=== PATIENT | female | born 1990 | race Hispanic/Latino ===

== ENCOUNTER 2016-07-09 09:27 | Emergency (ER) | payer OTHER ==
[2016-07-09] MEDS ORDERED: KETOROLAC 30 MG/ML VIAL (J1885) As Ordered ONE (10:10)
[2016-07-09] MEDS ORDERED: ONDANSETRON 4MG/2ML VIAL (J2405) As Ordered ONE (10:10)
[2016-07-09 10:22] LABS: BASO % 0.2 % (0.0-1.0); EOS # 0.1 K/mm3 (0.0-0.50); EOS % 1.6 % (0.0-3.0); LARGE UNSTAINED CELL # 0.2 K/mm3 (0.0-0.4); LARGE UNSTAINED CELL % 2.8 % (0.0-4.0); LYMPH % 35.5 % (24.0-44.0); MEAN CORPUSCULAR HEMOGLOBIN 32.5 pg (27.0-33.0); MEAN CORPUSCULAR HGB CONC 34.8 g/dl (32.0-36.5); MEAN CORPUSCULAR VOLUME 93.3 fl (80.0-96.0); MONO # 0.3 K/mm3 (0.0-0.8); MONO % 6.2 % (0.0-5.0); NEUTROPHILS # 2.9 K/mm3 (1.8-7.7); NEUTROPHILS % 53.8 % (36.0-66.0); PLATELET COUNT, AUTOMATED 300 k/mm3 (150-450); RED CELL DISTRIBUTION WIDTH 13.2 % (11.5-14.5); WHITE BLOOD COUNT 5.3 K/mm3 (4.0-10.0)
[2016-07-09 10:37] LABS: ALBUMIN 3.8 GM/DL (3.2-5.2); ALBUMIN/GLOBULIN RATIO 1.03 (1.00-1.93); ALKALINE PHOSPHATASE 80 U/L (45-117); ALT/SGPT 26 U/L (12-78); ANION GAP 8 MEQ/L (8-16); AST/SGOT 23 U/L (15-37); BILIRUBIN,DIRECT < 0.1 MG/DL (0.0-0.2); BILIRUBIN,TOTAL 0.2 MG/DL (0.2-1.0); BLOOD UREA NITROGEN 10 MG/DL (7-18); CALCIUM LEVEL 8.5 MG/DL (8.5-10.1); CARBON DIOXIDE LEVEL 28 MEQ/L (21-32); CHLORIDE LEVEL 103 MEQ/L (98-107); CREATININE FOR GFR 0.62 MG/DL (0.55-1.02); GLOMERULAR FILTRATION RATE > 60.0 (>60); GLUCOSE, FASTING 84 MG/DL (70-105); POTASSIUM SERUM 3.7 MEQ/L (3.5-5.1); SODIUM LEVEL 139 MEQ/L (136-145); TOTAL PROTEIN 7.5 GM/DL (6.4-8.2)
[2016-07-09] MEDS ORDERED: ISOVUE-370 76% 100ML VIAL (Q9967) As Ordered ONE (11:13)
--- NOTE | 2016-07-09 12:09 | EDDOCDS ---
Physician Documentation [facility] Name: Gracy Weinberg Age: 26 yrs Sex: Female : 1990 Arrival Date: 07/09/2016 Time: : Bed I3 / M3 Private MD: Disposition: 07/09/16 12:00 Discharged to Home/Self Care. Impression: Other ovarian cysts - right, Nausea and vomiting, Diarrhea, unspecified. - Condition is Stable. - Discharge Instructions: Ovarian Cyst, Viral Gastroenteritis. - Prescriptions for Ultram 50 mg Oral Tablet - take 1 tablet by ORAL route every 6 hours As needed MDD: 4 tabs; 16 tablet. - Medication Reconciliation form. - Follow up: Private Physician; When: Call to arrange an appointment; Reason: Wound/Symptom Recheck, Recheck today's complaints, Worsening of conditions, Continuance of care. - Problem is an ongoing problem. - Symptoms have improved. Historical: - Allergies: no known allergies; - Home Meds: 1. none - PMHx: none; - PSHx: none; - Social history: Smoking status: Patient states was never smoker of tobacco. No barriers to communication noted, The patient speaks fluent Botswanan, Speaks appropriately for age. - Family history: Not pertinent. - : The pt / caregiver states he / she is not on anticoagulants. Home medication list is obtained from the patient. - Exposure Risk Screening:: None identified. 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 0 in. (152.40 cm) (R); Pain 9/10; 11:15 BP 86 / 51; Pulse 61; jmk 09:32 Body Mass Index 32.22 (74.84 kg, 152.40 cm) nb2 MDM: 09:43 NS 0.9% 1000 ml IV at bolus once ordered. cc10 09:43 Ondansetron 4 mg IVP once ordered. cc10 09:43 ketorolac 30 mg IVP once ordered. cc10 09:43 IV Saline Lock ordered. cc10 09:43 Undress patient appropriately for examination ordered. cc10 09:43 UCG by Nursing ordered. cc10 09:44 Basic Metabolic Profile Ordered. EDMS 09:44 CBC with Diff Ordered. EDMS 09:44 Lipase Ordered. EDMS 09:44 Liver Profile Ordered. EDMS 09:44 Urinalysis Ordered. EDMS 09:44 Urine Culture Ordered. EDMS 09:44 CT ABD & PELVIS: IV Contrast Only Ordered. EDMS 09:45 NOTHING BY MOUTH+DIET ordered. EDMS 10:00 Financial registration complete. mm15 10:51 CBC with Diff Reviewed. cc10 10:51 Urinalysis Reviewed. cc10 10:51 Basic Metabolic Profile Reviewed. cc10 10:51 Lipase Reviewed. cc10 10:51 Liver Profile Reviewed. cc10 11:07 [facility] Payment Agreement was scanned into [employer] and attached to record. mm15 Point of Care Testing: Urine : 09:55 hCG Reading: Negative; Control Reading: Negative; jam1 Ranges: Administered Medications: 10:15 Drug: NS 0.9% 1000 ml Route: IV; Rate: bolus; Site: left antecubital; [facility] 10:15 Drug: Ondansetron 4 mg Route: IVP; Site: left antecubital; [facility] 10:15 Drug: ketorolac 30 mg [ketorolac 30 mg/mL (1 mL) injection solution (1 mL)] Route: IVP; [facility] Site: left antecubital; Signatures: Dispatcher [employer] Reza Garcia RN RN jmk Fuller, Desiree, RN RN dsf McGrath, Marlynn mm15 Anirudh Watson PA-C PAKeisha cc10 The chart was reviewed and I authenticate all verbal orders and agree with the evaluation and treatment provided.Attachments: 11:07 [facility] Payment Agreement mm15 MTDD
--- NOTE | 2016-07-09 12:09 | EDDOCDS ---
Nurse's Notes [facility] Name: Gracy Weinberg Age: 26 yrs Sex: Female : 1990 Arrival Date: 07/09/2016 Time: : Bed I3 / M3 Private MD: Diagnosis: Other ovarian cysts-right;Nausea and vomiting;Diarrhea, unspecified Presentation: 07/09 09:35 Presenting complaint: Patient states: abdominal pain, nausea, vomiting and diarrhea for dsf the past 3 days. Adult Sepsis Screening: The patient does not have new or worsening altered mentation. Patient's respiratory rate is less than 22. Systolic blood pressure is greater than 100. Patient has a qSOFA score of 0- Negative Sepsis Screen. Suicide/Homicide risk assessment- the patient denies having any suicidal and/or homicidal ideations and does not present with any other emotional, behavioral or mental health complaints. Status: The patient is a dependent. Transition of care: patient was not received from another setting of care. 09:35 Acuity: IZZY Level 3 dsf 09:35 Method Of Arrival: Walkin/Carried/Asstd dsf Triage Assessment: 09:36 General: Appears in no apparent distress, Behavior is appropriate for age, cooperative. dsf Pain: Location: right upper quadrant and left upper quadrant Pain currently is 9 out of 10 on a pain scale. Pain radiates to right lower quadrant Quality of pain is described as crampy. Pt Declines HIV testing. GI: Reports diarrhea, nausea, vomiting, Pain is 9 out of 10 on a pain scale. 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 none - PMHx: none; - PSHx: none; - Social history: Smoking status: Patient states was never smoker of tobacco. No barriers to communication noted, The patient speaks fluent South African, Speaks appropriately for age. - Family history: Not pertinent. - : The pt / caregiver states he / she is not on anticoagulants. Home medication list is obtained from the patient. - Exposure Risk Screening:: None identified. Screenin:56 Screening information is obtained from the patient. Primary language is South African. Fall jam1 risk: No risks identified. Assistance ADL's: requires no assistance with activities of daily living. Abuse/DV Screen: The patient / caregiver reports he/she is: not in a situation that causes fear, pain or injury. Nutritional screening: No deficits noted. Exposure Risk Screening: None identified. Advance Directives: Currently, there is no health care proxy. There is no active DNR order. There is no living will. There is no Power of Philatelic Consultant. Advance directive information has not previously been placed in an [facility] medical record. Further advance directive information is declined. home support is adequate. Assessment: 10:16 General: Appears skin warm and dry. color satisfactory moist pink oral mucosa. jmk indicates discomfort to id abdomen. ABD is soft and non distended with bowel sounds present x 4. Indicates discomfort to mid abdomen. Respiratory: No deficits noted. Airway is patent Respiratory effort is even, unlabored, Respiratory pattern is regular, Breath sounds are clear bilaterally. GI: Abdomen is flat, non- distended Bowel sounds present X 4 quads. Abd is soft X 4 quads Abd is tender to palpation in umbilical area. 11:16 General: Appears reports pain has decreased to 6/10 from 8/10. states is sleepy. vs as victor hugo noted and provider aware.. 11:23 General: Pt to CT via stretcher and returned IV site remains patent and clear.. dls Vital Signs: 09:32 BP 83 / 60; Pulse 93; Resp 18; Temp 98.5(O); Pulse Ox 100% on R/A; Weight 74.84 kg (R); nb2 Height 5 ft. 0 in. (152.40 cm) (R); Pain 9/10; 11:15 BP 86 / 51; Pulse 61; jmk 09:32 Body Mass Index 32.22 (74.84 kg, 152.40 cm) nb2 Vitals: 09:32 Log In Time: July 09, 2016 at 09:23. nb2 ED Course: 09:30 Patient visited by Liyah Trejo. nb2 09:30 Patient moved to Waiting nb2 09:33 Anirudh Watson [facility]-C [facility] cc10 09:33 Amos Matson MD is Attending Physician. cc10 09:34 Patient visited by Liyah Trejo. nb2 09:36 Triage Initiated dsf 09:38 Patient visited by Anirudh Watson PA-C. cc10 09:38 Patient visited by Anirudh Watson PA-C. cc10 09:38 Patient moved to Triage 1 dsf 09:49 Patient moved to I3 / M3 cc10 09:56 Pt greeted and oriented to ED. Patient advised of names of staff involved in care, jam1 location of call pierre, wait times and NPO status. Patient has correct armband on for positive identification. Placed in gown. Bed in low position. Call light in reach. Side rails up X 1. Adult w/ patient. Door closed. 10:16 The patient / caregiver is instructed regarding the plan of care and ED course. jmk 10:16 Inserted saline lock: 20 gauge in left antecubital area. jmk 10:19 Patient visited by Reza Ford RN. jmk 11:07 [facility] Payment Agreement was scanned into [employer] and attached to record. mm15 11:24 Patient visited by Anne Negro RN. dls 11:50 Patient name changed from Gracy\S\\S\Sultana\S\ to Gracy\S\ \S\Sultana. EDMS 12:06 Discontinued lock intact, bleeding controlled, pressure dressing applied, No jmk redness/swelling at site. No procedures done that require assistance. Administered Medications: 10:15 Drug: NS 0.9% 1000 ml Route: IV; Rate: bolus; Site: left antecubital; [facility] 10:15 Drug: Ondansetron 4 mg Route: IVP; Site: left antecubital; [facility] 10:15 Drug: ketorolac 30 mg [ketorolac 30 mg/mL (1 mL) injection solution (1 mL)] Route: IVP; [facility] Site: left antecubital; Point of Care Testing: Urine : 09:55 hCG Reading: Negative; Control Reading: Negative; jam1 Ranges: Order Results: Lab Order: Basic Metabolic Profile; SPEC'M 07/09/16 10:06 Test: GLUCOSE, FASTING; Value: 84; Range: 70-105; Units: MG/DL; Status: F Test: BLOOD UREA NITROGEN; Value: 10; Range: 7-18; Units: MG/DL; Status: F Test: CREATININE FOR GFR; Value: 0.62; Range: 0.55-1.02; Units: MG/DL; Status: F Test: GLOMERULAR FILTRATION RATE; Value: > 60.0; Range: >60; Status: F Test: SODIUM LEVEL; Value: 139; Range: 136-145; Units: MEQ/L; Status: F Test: POTASSIUM SERUM; Value: 3.7; Range: 3.5-5.1; Units: MEQ/L; Status: F Test: CHLORIDE LEVEL; Value: 103; Range: 98-107; Units: MEQ/L; Status: F Test: CARBON DIOXIDE LEVEL; Value: 28; Range: 21-32; Units: MEQ/L; Status: F Test: ANION GAP; Value: 8; Range: 8-16; Units: MEQ/L; Status: F Test: CALCIUM LEVEL; Value: 8.5; Range: 8.5-10.1; Units: MG/DL; Status: F Test Note: ; Units are mL/min/1.73 m2 Chronic Kidney Disease Staging per NKF: Stage I & II GFR >=60 Normal to Mildly Decreased Stage III GFR 30-59 Moderately Decreased Stage IV GFR 15-29 Severely Decreased Stage V GFR <15 Very Little GFR Left ESRD GFR <15 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0-36.5; Units: g/dl; Status: F Test: RED CELL DISTRIBUTION WIDTH; Value: 13.2; Range: 11.5-14.5; Units: %; Status: F Test: PLATELET COUNT, AUTOMATED; Value: 300; Range: 150-450; Units: k/mm3; Status: F Test: NEUTROPHILS %; Value: 53.8; Range: 36.0-66.0; Units: %; Status: F Test: LYMPH %; Value: 35.5; Range: 24.0-44.0; Units: %; Status: F Test: MONO %; Value: 6.2; Range: 0.0-5.0; Abnormal: Above high normal; Units: %; Status: F Test: EOS %; Value: 1.6; Range: 0.0-3.0; Units: %; Status: F Test: BASO %; Value: 0.2; Range: 0.0-1.0; Units: %; Status: F Test: LARGE UNSTAINED CELL %; Value: 2.8; Range: 0.0-4.0; Units: %; Status: F Test: NEUTROPHILS #; Value: 2.9; Range: 1.8-7.7; Units: K/mm3; Status: F Test: LYMPH #; Value: 2.0; Range: 1.5-6.5; Units: K/mm3; Status: F Test: MONO #; Value: 0.3; Range: 0.0-0.8; Units: K/mm3; Status: F Test: EOS #; Value: 0.1; Range: 0.0-0.50; Units: K/mm3; Status: F Test: BASO #; Value: 0.0; Range: 0.0-0.2; Units: K/mm3; Status: F Test: LARGE UNSTAINED CELL #; Value: 0.2; Range: 0.0-0.4; Units: K/mm3; Status: F Lab Order: Lipase; SPEC'M 07/09/16 10:06 Test: LIPASE; Value: 157; Range: 73-393; Units: U/L; Status: F Lab Order: Liver Profile; SPEC'M 07/09/16 10:06 Test: AST/SGOT; Value: 23; Range: 15-37; Units: U/L; Status: F Test: ALT/SGPT; Value: 26; Range: 12-78; Units: U/L; Status: F Test: ALKALINE PHOSPHATASE; Value: 80; Range: 45-117; Units: U/L; Status: F Test: BILIRUBIN,TOTAL; Value: 0.2; Range: 0.2-1.0; Units: MG/DL; Status: F Test: BILIRUBIN,DIRECT; Value: < 0.1; Range: 0.0-0.2; Units: MG/DL; Status: F Test: TOTAL PROTEIN; Value: 7.5; Range: 6.4-8.2; Units: GM/DL; Status: F Test: ALBUMIN; Value: 3.8; Range: 3.2-5.2; Units: GM/DL; Status: F Test: ALBUMIN/GLOBULIN RATIO; Value: 1.03; Range: 1.00-1.93; Status: F Lab Order: Urinalysis; SPEC'M 07/09/16 09:49 Test: APPEARANCE, URINE; Value: CLEAR; Range: CLEAR; Status: F Test: COLOR, URINE; Value: YELLOW; Range: YELLOW; Status: F Test: PH,URINE; Value: 7.0; Range: 5.0-9.0; Units: UNITS; Status: F Test: SPECIFIC GRAVITY URINE AUTO; Value: 1.014; Range: 1.002-1.035; Status: F Test: PROTEIN, URINE AUTO; Value: NEGATIVE; Range: NEGATIVE; Units: mg/dL; Status: F Test: GLUCOSE, URINE (UA) AUTO; Value: NEGATIVE; Range: NEGATIVE; Units: mg/dL; Status: F Test: KETONE, URINE AUTO; Value: NEGATIVE; Range: NEGATIVE; Units: mg/dL; Status: F Test: UROBILINOGEN, URINE AUTO; Value: 0.2; Range: 0.0-2.0; Units: mg/dL; Status: F Test: BILIRUBIN, URINE AUTO; Value: NEGATIVE; Range: NEGATIVE; Status: F Test: NITRITE, URINE AUTO; Value: NEGATIVE; Range: NEGATIVE; Status: F Test: LEUKOCYTE ESTERASE, URINE AUTO; Value: NEGATIVE; Range: NEGATIVE; Status: F Test: BLOOD, URINE BLOOD; Value: NEGATIVE; Range: NEGATIVE; Status: F Test: WBC, URINE AUTO; Value: 1; Range: 0-3; Units: /HPF; Status: F Test: RBC, URINE AUTO; Value: 1; Range: 0-3; Units: /HPF; Status: F Test: BACTERIA, URINE AUTO; Value: 1+; Range: NEGATIVE; Abnormal: Above high normal; Status: F Test: SQUAMOUS EPITHELIAL CELL UR AU; Value: 1; Range: 0-6; Units: /HPF; Status: F Test: HYALINE CAST, URINE AUTO; Value: 0; Range: 0-1; Units: /LPF; Status: F Outcome: 12:00 Discharge ordered by Provider. cc10 12:06 Discharge Assessment: Patient awake, alert and oriented x 3. No cognitive and/or jmk functional deficits noted. Patient verbalized understanding of disposition instructions. patient administered narcotics - no. The following High Risk Discharge criteria are identified: None. Discharged to home ambulatory. Condition: good. Discharge instructions given to patient, Instructed on discharge instructions, follow up and referral plans. medication usage, no driving heavy equipment, Demonstrated understanding of instructions, medications, Pt was receptive of discharge instructions/ teaching. CT Study completed. Property :Personal belongings accompany Pt. 12:07 Patient left the ED. victor hugo Signatures: Dispatcher [employer] EDReza Arvizu,RN RN Anne Garcia, RN RN Eleanor Ling, LIVESTOCK TRADER LIVESTOCK TRADER jam1 Ruby Peters,RN RN Suzie Todd mm15 Anirudh Watson, PA-C PA-C cc10 Liyah Trejo2 MTDAdrian
--- NOTE | 2016-07-09 12:11 | REP ---
CT ABDOMEN AND PELVIS WITH IV CONTRAST: CT ABDOMEN AND PELVIS WITH CONTRAST: TECHNIQUE: Axial contrast enhanced images from the lung bases to the pubic symphysis using 100 mL Isovue 370 intravenous contrast material with multiplanar reformations. Visualized lung bases are clear. The liver, gallbladder, spleen, adrenals, pancreas and kidneys appear essentially unremarkable. There is a duplicated left renal collecting system and two left ureters are seen in the left retroperitoneal space. There is no abdominal aortic aneurysm. There is no adenopathy. There is no free air. There is no bowel wall thickening. There is no evidence of appendicitis. The urinary bladder appears unremarkable. IUD is seen in the uterus. There is a dominant follicle in the right ovary 2 cm in diameter. There is trace free fluid in the pelvis. IMPRESSION: No CT evidence of acute appendicitis. IUD is seen in the uterus. There is a follicle in the right ovary 2.1 cm in diameter. There is trace free fluid in the pelvis. There is no other significant finding. Signed by Loco Emery MD 07/09/2016 04:58 P
--- NOTE | 2016-07-11 13:08 | EDDOCDS ---
Physician Documentation [facility] Name: Gracy Weinberg Age: 26 yrs Sex: Female : 1990 Arrival Date: 07/09/2016 Time: : Bed I3 / M3 Private MD: Disposition: 07/09/16 12:00 Discharged to Home/Self Care. Impression: Other ovarian cysts - right, Nausea and vomiting, Diarrhea, unspecified. - Condition is Stable. - Discharge Instructions: Ovarian Cyst, Viral Gastroenteritis. - Prescriptions for Ultram 50 mg Oral Tablet - take 1 tablet by ORAL route every 6 hours As needed MDD: 4 tabs; 16 tablet. - Medication Reconciliation form. - Follow up: Private Physician; When: Call to arrange an appointment; Reason: Wound/Symptom Recheck, Recheck today's complaints, Worsening of conditions, Continuance of care. - Problem is an ongoing problem. - Symptoms have improved. Historical: - Allergies: no known allergies; - Home Meds: 1. none - PMHx: none; - PSHx: none; - Social history: Smoking status: Patient states was never smoker of tobacco. No barriers to communication noted, The patient speaks fluent Lao, Speaks appropriately for age. - Family history: Not pertinent. - : The pt / caregiver states he / she is not on anticoagulants. Home medication list is obtained from the patient. - Exposure Risk Screening:: None identified. 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 0 in. (152.40 cm) (R); Pain 9/10; 11:15 BP 86 / 51; Pulse 61; jmk 09:32 Body Mass Index 32.22 (74.84 kg, 152.40 cm) nb2 MDM: 09:43 NS 0.9% 1000 ml IV at bolus once ordered. cc10 09:43 Ondansetron 4 mg IVP once ordered. cc10 09:43 ketorolac 30 mg IVP once ordered. cc10 09:43 IV Saline Lock ordered. cc10 09:43 Undress patient appropriately for examination ordered. cc10 09:43 UCG by Nursing ordered. cc10 09:44 Basic Metabolic Profile Ordered. EDMS 09:44 CBC with Diff Ordered. EDMS 09:44 Lipase Ordered. EDMS 09:44 Liver Profile Ordered. EDMS 09:44 Urinalysis Ordered. EDMS 09:44 Urine Culture Ordered. EDMS 09:44 CT ABD & PELVIS: IV Contrast Only Ordered. EDMS 09:45 NOTHING BY MOUTH+DIET ordered. EDMS 10:00 Financial registration complete. mm15 10:51 CBC with Diff Reviewed. cc10 10:51 Urinalysis Reviewed. cc10 10:51 Basic Metabolic Profile Reviewed. cc10 10:51 Lipase Reviewed. cc10 10:51 Liver Profile Reviewed. cc10 11:07 [facility] Payment Agreement was scanned into [employer] and attached to record. mm15 Point of Care Testing: Urine : 09:55 hCG Reading: Negative; Control Reading: Negative; jam1 Ranges: Administered Medications: 10:15 Drug: NS 0.9% 1000 ml Route: IV; Rate: bolus; Site: left antecubital; [facility] 10:15 Drug: Ondansetron 4 mg Route: IVP; Site: left antecubital; [facility] 10:15 Drug: ketorolac 30 mg [ketorolac 30 mg/mL (1 mL) injection solution (1 mL)] Route: IVP; [facility] Site: left antecubital; Signatures: Dispatcher [employer] Reza Garcia RN RN jmk Fuller, Desiree, RN RN dsf McGrath, Marlynn mm15 Anirudh Watson PA-C PAYuriyC cc10 The chart was reviewed and I authenticate all verbal orders and agree with the evaluation and treatment provided.Attachments: 11:07 [facility] Payment Agreement mm15 Chart Complete MTDD
--- NOTE | 2016-07-11 13:08 | EDDOCDS ---
Nurse's Notes [facility] Name: Gracy Weinberg Age: 26 yrs Sex: Female : 1990 Arrival Date: 07/09/2016 Time: : Bed I3 / M3 Private MD: Diagnosis: Other ovarian cysts-right;Nausea and vomiting;Diarrhea, unspecified Presentation: 07/09 09:35 Presenting complaint: Patient states: abdominal pain, nausea, vomiting and diarrhea for dsf the past 3 days. Adult Sepsis Screening: The patient does not have new or worsening altered mentation. Patient's respiratory rate is less than 22. Systolic blood pressure is greater than 100. Patient has a qSOFA score of 0- Negative Sepsis Screen. Suicide/Homicide risk assessment- the patient denies having any suicidal and/or homicidal ideations and does not present with any other emotional, behavioral or mental health complaints. Status: The patient is a dependent. Transition of care: patient was not received from another setting of care. 09:35 Acuity: IZZY Level 3 dsf 09:35 Method Of Arrival: Walkin/Carried/Asstd dsf Triage Assessment: 09:36 General: Appears in no apparent distress, Behavior is appropriate for age, cooperative. dsf Pain: Location: right upper quadrant and left upper quadrant Pain currently is 9 out of 10 on a pain scale. Pain radiates to right lower quadrant Quality of pain is described as crampy. Pt Declines HIV testing. GI: Reports diarrhea, nausea, vomiting, Pain is 9 out of 10 on a pain scale. 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 none - PMHx: none; - PSHx: none; - Social history: Smoking status: Patient states was never smoker of tobacco. No barriers to communication noted, The patient speaks fluent Ugandan, Speaks appropriately for age. - Family history: Not pertinent. - : The pt / caregiver states he / she is not on anticoagulants. Home medication list is obtained from the patient. - Exposure Risk Screening:: None identified. Screenin:56 Screening information is obtained from the patient. Primary language is Ugandan. Fall jam1 risk: No risks identified. Assistance ADL's: requires no assistance with activities of daily living. Abuse/DV Screen: The patient / caregiver reports he/she is: not in a situation that causes fear, pain or injury. Nutritional screening: No deficits noted. Exposure Risk Screening: None identified. Advance Directives: Currently, there is no health care proxy. There is no active DNR order. There is no living will. There is no Power of Performance Test Architect. Advance directive information has not previously been placed in an [facility] medical record. Further advance directive information is declined. home support is adequate. Assessment: 10:16 General: Appears skin warm and dry. color satisfactory moist pink oral mucosa. jmk indicates discomfort to id abdomen. ABD is soft and non distended with bowel sounds present x 4. Indicates discomfort to mid abdomen. Respiratory: No deficits noted. Airway is patent Respiratory effort is even, unlabored, Respiratory pattern is regular, Breath sounds are clear bilaterally. GI: Abdomen is flat, non- distended Bowel sounds present X 4 quads. Abd is soft X 4 quads Abd is tender to palpation in umbilical area. 11:16 General: Appears reports pain has decreased to 6/10 from 8/10. states is sleepy. vs as victor hugo noted and provider aware.. 11:23 General: Pt to CT via stretcher and returned IV site remains patent and clear.. dls Vital Signs: 09:32 BP 83 / 60; Pulse 93; Resp 18; Temp 98.5(O); Pulse Ox 100% on R/A; Weight 74.84 kg (R); nb2 Height 5 ft. 0 in. (152.40 cm) (R); Pain 9/10; 11:15 BP 86 / 51; Pulse 61; jmk 09:32 Body Mass Index 32.22 (74.84 kg, 152.40 cm) nb2 Vitals: 09:32 Log In Time: July 09, 2016 at 09:23. nb2 ED Course: 09:30 Patient visited by Liyah Trejo. nb2 09:30 Patient moved to Waiting nb2 09:33 Anirudh Watson PA-C [facility]. cc10 09:33 Amos Matson MD is Attending Physician. cc10 09:34 Patient visited by Liyah Trejo. nb2 09:36 Triage Initiated dsf 09:38 Patient visited by Anirudh Watson PA-C. cc10 09:38 Patient visited by Anirudh Watson PA-C. cc10 09:38 Patient moved to Triage 1 dsf 09:49 Patient moved to I3 / M3 cc10 09:56 Pt greeted and oriented to ED. Patient advised of names of staff involved in care, jam1 location of call pierre, wait times and NPO status. Patient has correct armband on for positive identification. Placed in gown. Bed in low position. Call light in reach. Side rails up X 1. Adult w/ patient. Door closed. 10:16 The patient / caregiver is instructed regarding the plan of care and ED course. jmk 10:16 Inserted saline lock: 20 gauge in left antecubital area. jmk 10:19 Patient visited by Reza Ford RN. chipk 11:07 [facility] Payment Agreement was scanned into [employer] and attached to record. mm15 11:24 Patient visited by Anne Negro RN. dls 11:50 Patient name changed from Gracy\S\\S\Sultana\S\ to Gracy\S\ \S\Sultana. EDMS 12:06 Discontinued lock intact, bleeding controlled, pressure dressing applied, No jmk redness/swelling at site. No procedures done that require assistance. 12:40 CT ABD & PELVIS: IV Contrast Only Returned. EDMS Administered Medications: 10:15 Drug: NS 0.9% 1000 ml Route: IV; Rate: bolus; Site: left antecubital; [facility] 10:15 Drug: Ondansetron 4 mg Route: IVP; Site: left antecubital; [facility] 10:15 Drug: ketorolac 30 mg [ketorolac 30 mg/mL (1 mL) injection solution (1 mL)] Route: IVP; [facility] Site: left antecubital; Point of Care Testing: Urine : 09:55 hCG Reading: Negative; Control Reading: Negative; jam1 Ranges: Order Results: Lab Order: Basic Metabolic Profile; SPEC'M 07/09/16 10:06 Test: GLUCOSE, FASTING; Value: 84; Range: 70-105; Units: MG/DL; Status: F Test: BLOOD UREA NITROGEN; Value: 10; Range: 7-18; Units: MG/DL; Status: F Test: CREATININE FOR GFR; Value: 0.62; Range: 0.55-1.02; Units: MG/DL; Status: F Test: GLOMERULAR FILTRATION RATE; Value: > 60.0; Range: >60; Status: F Test: SODIUM LEVEL; Value: 139; Range: 136-145; Units: MEQ/L; Status: F Test: POTASSIUM SERUM; Value: 3.7; Range: 3.5-5.1; Units: MEQ/L; Status: F Test: CHLORIDE LEVEL; Value: 103; Range: 98-107; Units: MEQ/L; Status: F Test: CARBON DIOXIDE LEVEL; Value: 28; Range: 21-32; Units: MEQ/L; Status: F Test: ANION GAP; Value: 8; Range: 8-16; Units: MEQ/L; Status: F Test: CALCIUM LEVEL; Value: 8.5; Range: 8.5-10.1; Units: MG/DL; Status: F Test Note: ; Units are mL/min/1.73 m2 Chronic Kidney Disease Staging per NKF: Stage I & II GFR >=60 Normal to Mildly Decreased Stage III GFR 30-59 Moderately Decreased Stage IV GFR 15-29 Severely Decreased Stage V GFR <15 Very Little GFR Left ESRD GFR <15 on SULFURIC ACID PLANT OPERATOR Lab Order: CBC with Diff; SPEC'M 07/09/16 10:06 Test: WHITE BLOOD COUNT; Value: 5.3; Range: 4.0-10.0; Units: K/mm3; Status: F Test: RED BLOOD COUNT; Value: 3.92; Range: 4.00-5.40; Abnormal: Below low normal; Units: M/mm3; Status: F Test: HEMOGLOBIN; Value: 12.7; Range: 12.0-16.0; Units: g/dl; Status: F Test: HEMATOCRIT; Value: 36.5; Range: 36.0-47.0; Units: %; Status: F Test: MEAN CORPUSCULAR VOLUME; Value: 93.3; Range: 80.0-96.0; Units: fl; Status: F Test: MEAN CORPUSCULAR HEMOGLOBIN; Value: 32.5; Range: 27.0-33.0; Units: pg; Status: F Test: MEAN CORPUSCULAR HGB CONC; Value: 34.8; Range: 32.0-36.5; Units: g/dl; Status: F Test: RED CELL DISTRIBUTION WIDTH; Value: 13.2; Range: 11.5-14.5; Units: %; Status: F Test: PLATELET COUNT, AUTOMATED; Value: 300; Range: 150-450; Units: k/mm3; Status: F Test: NEUTROPHILS %; Value: 53.8; Range: 36.0-66.0; Units: %; Status: F Test: LYMPH %; Value: 35.5; Range: 24.0-44.0; Units: %; Status: F Test: MONO %; Value: 6.2; Range: 0.0-5.0; Abnormal: Above high normal; Units: %; Status: F Test: EOS %; Value: 1.6; Range: 0.0-3.0; Units: %; Status: F Test: BASO %; Value: 0.2; Range: 0.0-1.0; Units: %; Status: F Test: LARGE UNSTAINED CELL %; Value: 2.8; Range: 0.0-4.0; Units: %; Status: F Test: NEUTROPHILS #; Value: 2.9; Range: 1.8-7.7; Units: K/mm3; Status: F Test: LYMPH #; Value: 2.0; Range: 1.5-6.5; Units: K/mm3; Status: F Test: MONO #; Value: 0.3; Range: 0.0-0.8; Units: K/mm3; Status: F Test: EOS #; Value: 0.1; Range: 0.0-0.50; Units: K/mm3; Status: F Test: BASO #; Value: 0.0; Range: 0.0-0.2; Units: K/mm3; Status: F Test: LARGE UNSTAINED CELL #; Value: 0.2; Range: 0.0-0.4; Units: K/mm3; Status: F Lab Order: Lipase; SPEC'M 07/09/16 10:06 Test: LIPASE; Value: 157; Range: 73-393; Units: U/L; Status: F Lab Order: Liver Profile; SPEC' 07/09/16 10:06 Test: AST/SGOT; Value: 23; Range: 15-37; Units: U/L; Status: F Test: ALT/SGPT; Value: 26; Range: 12-78; Units: U/L; Status: F Test: ALKALINE PHOSPHATASE; Value: 80; Range: 45-117; Units: U/L; Status: F Test: BILIRUBIN,TOTAL; Value: 0.2; Range: 0.2-1.0; Units: MG/DL; Status: F Test: BILIRUBIN,DIRECT; Value: < 0.1; Range: 0.0-0.2; Units: MG/DL; Status: F Test: TOTAL PROTEIN; Value: 7.5; Range: 6.4-8.2; Units: GM/DL; Status: F Test: ALBUMIN; Value: 3.8; Range: 3.2-5.2; Units: GM/DL; Status: F Test: ALBUMIN/GLOBULIN RATIO; Value: 1.03; Range: 1.00-1.93; Status: F Lab Order: Urinalysis; SPEC'M 07/09/16 09:49 Test: APPEARANCE, URINE; Value: CLEAR; Range: CLEAR; Status: F Test: COLOR, URINE; Value: YELLOW; Range: YELLOW; Status: F Test: PH,URINE; Value: 7.0; Range: 5.0-9.0; Units: UNITS; Status: F Test: SPECIFIC GRAVITY URINE AUTO; Value: 1.014; Range: 1.002-1.035; Status: F Test: PROTEIN, URINE AUTO; Value: NEGATIVE; Range: NEGATIVE; Units: mg/dL; Status: F Test: GLUCOSE, URINE (UA) AUTO; Value: NEGATIVE; Range: NEGATIVE; Units: mg/dL; Status: F Test: KETONE, URINE AUTO; Value: NEGATIVE; Range: NEGATIVE; Units: mg/dL; Status: F Test: UROBILINOGEN, URINE AUTO; Value: 0.2; Range: 0.0-2.0; Units: mg/dL; Status: F Test: BILIRUBIN, URINE AUTO; Value: NEGATIVE; Range: NEGATIVE; Status: F Test: NITRITE, URINE AUTO; Value: NEGATIVE; Range: NEGATIVE; Status: F Test: LEUKOCYTE ESTERASE, URINE AUTO; Value: NEGATIVE; Range: NEGATIVE; Status: F Test: BLOOD, URINE BLOOD; Value: NEGATIVE; Range: NEGATIVE; Status: F Test: WBC, URINE AUTO; Value: 1; Range: 0-3; Units: /HPF; Status: F Test: RBC, URINE AUTO; Value: 1; Range: 0-3; Units: /HPF; Status: F Test: BACTERIA, URINE AUTO; Value: 1+; Range: NEGATIVE; Abnormal: Above high normal; Status: F Test: SQUAMOUS EPITHELIAL CELL UR AU; Value: 1; Range: 0-6; Units: /HPF; Status: F Test: HYALINE CAST, URINE AUTO; Value: 0; Range: 0-1; Units: /LPF; Status: F Lab Order: Urine Culture; SPEC'M 07/09/16 09:49 Test: URINE CULTURE; Value: <EXTERNAL COMMENT eCWMed> FULL REPORT IN LAB NOTES (eCW and Medent).; Status: F Test: URINE CULTURE; Value: URINE CULTURE RESULT NO GROWTH; Status: F Radiology Order: CT ABD & PELVIS: IV Contrast Only Test: CT ABD & PELVIS: IV Contrast Only REASON FOR EXAMINATION: Appendicitis; CT ABDOMEN AND PELVIS WITH IV CONTRAST:; ; CT ABDOMEN AND PELVIS WITH CONTRAST:; ; TECHNIQUE: Axial contrast enhanced images from the lung bases to the pubic; symphysis using 100 mL Isovue 370 intravenous contrast material with multiplanar; reformations.; ; Visualized lung bases are clear.; ; The liver, gallbladder, spleen, adrenals, pancreas and kidneys appear essentially; unremarkable. There is a duplicated left renal collecting system and two left; ureters are seen in the left retroperitoneal space. There is no abdominal aortic; aneurysm. There is no adenopathy. There is no free air. There is no bowel wall; thickening. There is no evidence of appendicitis. The urinary bladder appears; unremarkable. IUD is seen in the uterus. There is a dominant follicle in the; right ovary 2 cm in diameter. There is trace free fluid in the pelvis.; ; IMPRESSION:; ; No CT evidence of acute appendicitis. IUD is seen in the uterus. There is a; follicle in the right ovary 2.1 cm in diameter. There is trace free fluid in the; pelvis. There is no other significant finding.; ; ; Signed by; Loco Emery MD 07/09/2016 04:58 P; Outcome: 12:00 Discharge ordered by Provider. cc10 12:06 Discharge Assessment: Patient awake, alert and oriented x 3. No cognitive and/or jmk functional deficits noted. Patient verbalized understanding of disposition instructions. patient administered narcotics - no. The following High Risk Discharge criteria are identified: None. Discharged to home ambulatory. Condition: good. Discharge instructions given to patient, Instructed on discharge instructions, follow up and referral plans. medication usage, no driving heavy equipment, Demonstrated understanding of instructions, medications, Pt was receptive of discharge instructions/ teaching. CT Study completed. Property :Personal belongings accompany Pt. 12:07 Patient left the ED. victor hugo Signatures: Dispatcher [employer] EDReza Arvizu,Anne Yanez RN, RN RN Eleanor Ling, PRESALES CONSULTANT PRESALES CONSULTANT jam1 Ruby Peters RN RN Suzie Todd mm15 Anirudh Watson PA-C PAYuriyC cc10 Liyah Trejo nb2 Chart Complete MTDD
--- NOTE | 2016-07-11 13:09 | EDDOCDS ---
Physician Documentation [facility] Name: Gracy Weinberg Age: 26 yrs Sex: Female : 1990 Arrival Date: 07/09/2016 Time: : Bed I3 / M3 Private MD: Disposition: 07/09/16 12:00 Discharged to Home/Self Care. Impression: Other ovarian cysts - right, Nausea and vomiting, Diarrhea, unspecified. - Condition is Stable. - Discharge Instructions: Ovarian Cyst, Viral Gastroenteritis. - Prescriptions for Ultram 50 mg Oral Tablet - take 1 tablet by ORAL route every 6 hours As needed MDD: 4 tabs; 16 tablet. - Medication Reconciliation form. - Follow up: Private Physician; When: Call to arrange an appointment; Reason: Wound/Symptom Recheck, Recheck today's complaints, Worsening of conditions, Continuance of care. - Problem is an ongoing problem. - Symptoms have improved. Historical: - Allergies: no known allergies; - Home Meds: 1. none - PMHx: none; - PSHx: none; - Social history: Smoking status: Patient states was never smoker of tobacco. No barriers to communication noted, The patient speaks fluent Albanian, Speaks appropriately for age. - Family history: Not pertinent. - : The pt / caregiver states he / she is not on anticoagulants. Home medication list is obtained from the patient. - Exposure Risk Screening:: None identified. 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 0 in. (152.40 cm) (R); Pain 9/10; 11:15 BP 86 / 51; Pulse 61; jmk 09:32 Body Mass Index 32.22 (74.84 kg, 152.40 cm) nb2 MDM: 09:43 NS 0.9% 1000 ml IV at bolus once ordered. cc10 09:43 Ondansetron 4 mg IVP once ordered. cc10 09:43 ketorolac 30 mg IVP once ordered. cc10 09:43 IV Saline Lock ordered. cc10 09:43 Undress patient appropriately for examination ordered. cc10 09:43 UCG by Nursing ordered. cc10 09:44 Basic Metabolic Profile Ordered. EDMS 09:44 CBC with Diff Ordered. EDMS 09:44 Lipase Ordered. EDMS 09:44 Liver Profile Ordered. EDMS 09:44 Urinalysis Ordered. EDMS 09:44 Urine Culture Ordered. EDMS 09:44 CT ABD & PELVIS: IV Contrast Only Ordered. EDMS 09:45 NOTHING BY MOUTH+DIET ordered. EDMS 10:00 Financial registration complete. mm15 10:51 CBC with Diff Reviewed. cc10 10:51 Urinalysis Reviewed. cc10 10:51 Basic Metabolic Profile Reviewed. cc10 10:51 Lipase Reviewed. cc10 10:51 Liver Profile Reviewed. cc10 11:07 [facility] Payment Agreement was scanned into [employer] and attached to record. mm15 Point of Care Testing: Urine : 09:55 hCG Reading: Negative; Control Reading: Negative; jam1 Ranges: Administered Medications: 10:15 Drug: NS 0.9% 1000 ml Route: IV; Rate: bolus; Site: left antecubital; [facility] 10:15 Drug: Ondansetron 4 mg Route: IVP; Site: left antecubital; [facility] 10:15 Drug: ketorolac 30 mg [ketorolac 30 mg/mL (1 mL) injection solution (1 mL)] Route: IVP; [facility] Site: left antecubital; Signatures: Dispatcher [email or web address] Reza Garcia RN RN jmk Fuller, Desiree, RN RN dsf McGrath, Marlynn mm15 Anirudh Watson PA-C PAYuriyC cc10 The chart was reviewed and I authenticate all verbal orders and agree with the evaluation and treatment provided.Attachments: 11:07 [facility] Payment Agreement mm15 Chart Complete MTDD
== END 2016-07-09 12:07 | disposition home or self-care (01) ==
LOC: M ED 09:27
DX: N83.01 Follicular cyst of right ovary (principal); R11.2 Nausea with vomiting, unspecified; R19.7 Diarrhea, unspecified
CPT/HCPCS: 74177; 80048; 80076; 81001; 81025; 83690; 85025; 87086; 96374; 96375; 99284; J1885; J2405; Q9967

== ENCOUNTER 2017-03-26 05:52 | Inpatient (IN) | payer OTHER ==
[~2017-03-26] VITALS: Ht 152.4 cm; Wt 82.9 kg
[~2017-03-26 05:52] MED LIST: IBUP-1022 PO; MIDO1TAB5 PO
[2017-03-26] MEDS ORDERED: LR 1,000 ML IV ONE (06:15)
[2017-03-26 06:27] LABS: MEAN CORPUSCULAR HEMOGLOBIN 32.3 pg (27.0-33.0); MEAN CORPUSCULAR HGB CONC 34.3 g/dl (32.0-36.5); MEAN CORPUSCULAR VOLUME 94.3 fl (80.0-96.0); PLATELET COUNT, AUTOMATED 340 10^3/uL (150-450); RED CELL DISTRIBUTION WIDTH 12.8 % (11.5-14.5); WHITE BLOOD COUNT 6.9 10^3/uL (4.0-10.0)
[2017-03-26 06:45] LABS: CONTROL LINE UCG INT CTR LINE PRESENT
[2017-03-26] MEDS ORDERED: BUPIVACAINE HCL 0.25% 30 ML VIAL As Ordered ONE (07:15)
[2017-03-26] MEDS ORDERED: ROCURONIUM BROMIDE 50 MG/5 ML VIAL/SYRINGE As Ordered ONE ×3 (07:21→10:54)
[2017-03-26] MEDS ORDERED: KETOROLAC 60 MG/2 ML VIAL (J1885) As Ordered ONE (07:21)
[2017-03-26] MEDS ORDERED: PROPOFOL 200 MG/20 ML VIAL As Ordered ONE ×2 (07:21→09:23)
[2017-03-26] MEDS ORDERED: dexameTHASONE 4 MG/ML 1ML VIAL (J1100) As Ordered ONE (07:21)
[2017-03-26] MEDS ORDERED: LIDOCAINE 2% INJ 100 MG/5 ML SDV (FOR ANES.) As Ordered ONE (07:21)
[2017-03-26] MEDS ORDERED: ONDANSETRON 4MG/2ML VIAL (J2405) As Ordered ONE (07:21)
[2017-03-26] MEDS ORDERED: fentaNYL 250 MCG/5 ML INJECTION (J3010) As Ordered ONE (07:22)
[2017-03-26] MEDS ORDERED: MIDAZOLAM INJ 2 MG/2 ML VIAL (J2250) As Ordered ONE (07:23)
[2017-03-26] MEDS ORDERED: LIDOCAINE 1% SDV INJ 30 ML VIAL As Ordered ONE (07:54)
[2017-03-26] MEDS ORDERED: ETONOGESTREL XX ONE (08:00)
[2017-03-26] MEDS ORDERED: [UNRECOGNIZED DRUG - OTHER] XX ONE (08:00)
[2017-03-26] MEDS ORDERED: GLYCOPYRROLATE INJ 0.2 MG/ML 2 ML VIAL As Ordered ONE (08:15)
[2017-03-26] MEDS ORDERED: HYDROmorphone HCL 2 MG/ML 1ML VIAL (J1170) As Ordered ONE (08:15)
[2017-03-26] MEDS ORDERED: NEOSTIGMINE 10 MG/10 ML VIAL (J2710) As Ordered ONE (08:15)
[2017-03-26] MEDS ORDERED: ceFAZolin 2 GM/D5W 50 ML IV BAG (J0690) As Ordered ONE (10:33)
[2017-03-26] MEDS ORDERED: ePHEDrine SULFATE 25 MG/5 ML(5MG/ML) SYRINGE As Ordered ONE (11:14)
[2017-03-26] MEDS ORDERED: PHENYLephrine HCL 500 MCG/5 ML (100MCG/ML) SYRINGE (J2370) As Ordered ONE (12:07)
[2017-03-26] MEDS ORDERED: fentaNYL 100 MCG/2 ML INJECTION (J3010) As Ordered ONE (12:38)
[2017-03-26] MEDS ORDERED: PERCOCET 5MG/325MG TAB PO PRN (13:30)
[2017-03-26] MEDS ORDERED: ONDANSETRON 4MG/2ML VIAL (J2405) IV PRN ×2 (13:30→13:45)
[2017-03-26] MEDS ORDERED: fentaNYL 100 MCG/2 ML INJECTION (J3010) IV PRN (13:45)
[2017-03-26] MEDS ORDERED: LR 1,000 ML IV SCH (13:45)
[2017-03-26] MEDS: HYDROmorphone HCL 1 MG/ML SYRINGE (J1170) IV PRN ×5 (13:54→14:45)
[2017-03-26] MEDS: PERCOCET 5MG/325MG TAB PO PRN ×4 (13:55→23:24)
[2017-03-26 15:00] VITALS: BP 136/71
[2017-03-26 16:00] VITALS: BP 141/64
[2017-03-26 16:30] VITALS: BP 130/62
[2017-03-26] MEDS: LR 1,000 ML IV SCH ×2 (16:47→20:34)
--- NOTE | 2017-03-26 17:19 | RO ---
DATE OF OPERATION: 03/26/2017 PREOPERATIVE DIAGNOSES: 1. Retained Paragard intrauterine device fragment. 2. Desire for continued contraception. 3. Need for updated Pap smear. POSTOPERATIVE DIAGNOSES: 1. Retained Paragard intrauterine device fragment. 2. Desire for continued contraception. 3. Need for updated Pap smear. OPERATION PERFORMED: 1. Pap smear. 2. Operative hysteroscopy. 3. Operative laparoscopy. 4. Laparotomy. 5. Fluoroscopy. 6. Nexplanon placement. STAFF SURGEON: Simran Tineo MD [employer] SUPERVISOR: Loco Samson MD ANESTHESIA: MICAH CLINICAL SERVICE: Gynecology. INDICATION FOR OPERATION: Gracy is a 26-year-old who presented to clinic with an intrauterine device (IUD) fragment that was retained. She had a Paragard placed approximately 10 years prior and recently went to her family practice physician who attempted removal but noted that the IUD came out in an "L"-shape rather than a "T"-shape. It was missing one arm. She was sent to radiology at that point for an ultrasound, which showed the IUD arm embedded in the myometrium on the right mid body of the uterus. She strongly desired removal of the piece of Paragard, was having cramping related to it after the procedure to try to remove it in clinic. She had wanted a Nexplanon placed at that visit, but because of retained IUD fragment, the Nexplanon was not placed at that visit. She was also in need of an updated Pap smear. MATERIAL FORWARDED TO LABORATORY: 1. Pap smear. 2. Paragard IUD fragment. DESCRIPTION OF FINDINGS: Hysteroscopy revealed the proximal end of the IUD arm slightly visible in the anterior uterine wall. Laparoscopic findings included normal appearing uterus, fallopian tubes, ovaries, liver edge. Fluoroscopic findings revealed IUD fragment in the right mid uterine body. INFECTION CLASSIFICATION: 2. ESTIMATED BLOOD LOSS: 150 mL. URINE OUTPUT: Via Cevallos, 300 mL of yellow colored urine. IV FLUIDS: 2800 mL of lactated Ringer's. DESCRIPTION OF PROCEDURE: After obtaining informed consent, patient was taken to the operating room. General endotracheal anesthesia was established and she was placed in low lithotomy position. Patient was prepped and draped in usual sterile fashion after a Pap smear was performed. A sterile speculum was then placed into the vagina and the anterior segment of the cervix was grasped with a single-tooth tenaculum. Uterus sounded to 7 cm. The cervix was sequentially dilated using Jonah's dilators. Hysteroscopic camera was introduced to the fundus of the uterus where a normal endometrial cavity was observed. Both uterine ostia were observed and there was good visualization of the entire uterine cavity. The proximal arm of the Paragard IUD was visible, perhaps 2 mm of the end. Alligator hysteroscopic forceps were introduced through the operative port and we attempted to remove the Paragard piece using the forceps. However, the forceps would only break away small pieces of the plastic, which were removed from the uterus and set aside to send to pathology. We realized that we would not be able to retrieve the entire IUD piece using this method and so we then turned our attention to laparoscopy. Patient had a Cevallos catheter placed and a Hulka manipulator was placed through cervix into the uterus. Tenaculum was removed. Hemostasis observed. Tohatchi speculum was removed. A 5 mm incision was made in the infraumbilical fold beneath the subcutaneous tissue. Moriah clamp was used to spread the subcutaneous tissue and the lower abdominal wall was manually grabbed and lifted up, and Optiview trocar was placed at 90 degree angle. Laparoscope was advanced through the port and intraabdominal placement was confirmed. Continuous carbon dioxide in the abdomen began to establish a pneumoperitoneum at 15 mmHg. Two lateral ports were placed, both 5 mm in size, under direct visualization. Pelvic and abdominal survey were conducted beginning at the anterior cul-de-sac, anterior portion of the uterus, which were normal in appearance. There were no obvious signs of the retained IUD fragment. The fallopian tubes, round ligaments, broad ligaments, ovaries were observed to be normal in appearance. Posterior cul-de-sac was observed to be normal. Survey of the upper abdomen revealed normal appearing liver edge. We attempted to use laparoscopic instruments to palpate the location of the IUD fragment. At one point, we thought that we could feel the IUD fragment and so we began to dissect off the bladder away from the anterior uterus and we used monopolar scissors to dissect down into the uterine wall. However, we quickly realized that the IUD fragment was not at that location. We attempted several different types of manipulations to include trying to use hysteroscopy and laparoscopy at the same time to try to palpate down laparoscopically to the hysteroscopic camera. However, that was unsuccessful. We tried to use Kyle Stone forceps within the uterus pushing up on what we felt was the IUD fragment and using the monopolar scissors laparoscopically to cut down to the Kyle Stone forceps. Again, that proved unsuccessful and so I left the sterile field after having called Dr. Guillory, our colleague, in to operate with Dr. Samson for his assistance and opinions. The three of us brainstormed various ideas, but we were unable to remove the IUD fragment laparoscopically. So I unscrubbed and went and spoke with the patient's and confirmed that she did strongly desire the IUD fragment out, and although she was not consented for a laparotomy previously, her confirmed that she would desire the laparotomy and he gave his verbal consent. So at that point, I scrubbed back in to the case and Dr. Samson and I performed laparotomy to locate the IUD fragment. We left the trocars in place. At that point, she had three lateral ports for a total of 4, all of which were 5 mm. Patient was given 2 grams of IV Ancef because there was a perforation through the uterus where the Kyle Stone forceps had been used to try to locate IUD fragment with the monopolar scissors laparoscopically, and we wanted to cover any potential organisms that may have entered the abdomen through the uterine perforation. Midline mini laparotomy incision was made approximately 5 cm in length. The skin incision was made using a scalpel down to the level of the fascia. Fascia was incised and dissected off rectus muscles. Rectus muscles were pulled laterally and the peritoneum was identified and entered using Metzenbaum scissors. The bowel was packed away with one laparotomy sponge. We tried to palpate the area with the IUD fragment and we were unable to feel it. At that point, we called for fluoroscopy and the medical equipment technician came to the operating room (OR) and performed real-time fluoroscopy for us so that we could locate the IUD fragment. At that point, using a scalpel, I was able to easily cut down to the IUD fragment and removed it intact, and that was sent to pathology. #0 Vicryl suture was then used to reapproximate the areas of incisions on the uterine wall in a running locking fashion. Serosa was reapproximated over that, again using #0 Vicryl in running locking fashion. Hemostasis was ensured. We then sutured the bladder flap to the uterus using #3-0 Vicryl after placing two pieces of Gelfoam between the uterus and the bladder and Emmanuel to ensure continued hemostasis. After the bladder flap was sutured, we assured ourselves that there was no bladder injury. The urine was still yellow and clear with no blood visible. The pelvis was irrigated copiously and then we began to close first starting with the fascia, which was closed with #0 Vicryl in a running unlocked fashion. The deep dermal layer was reapproximated using #3-0 Vicryl in a running fashion. Three subcuticular stitches were done to reapproximate the tissue with #3-0 Vicryl, and finally, running subcuticular layer was done with #4-0 Monocryl. Steri-Strips were applied to the incision along with Telfa and pressure dressing. The laparoscopic ports were all removed with hemostasis noted. The laparoscopic port sites were reapproximated using #4-0 Monocryl subdermal sutures with Steri-Strips overlying. I anesthetized the laparotomy incision and the laparoscopic port sites with 0.25% Marcaine at the end of the procedure for continued pain relief. All instruments were removed from the vagina as well as the Cevallos catheter. All counts at this point were correct times two. We then performed the Nexplanon placement. Given that the patient is right hand dominant, the Nexplanon insertion was on the left arm. Insertion site was identified approximately 6-8 cm proximal to the elbow overlying the groove between the biceps and triceps muscle. The skin was prepped with Betadine solution and the insertion site was anesthetized with 1% lidocaine and the remaining tracked along which the implant would be placed was also anesthetized. The Nexplanon implant was confirmed to be in the needle and countertraction was placed on the skin by the proposed insertion site. The needle was inserted beveled side up at an angle no greater than 30 degrees. The applicator was lowered to a horizontal position and the needle was advanced while tenting the skin along the full length of insertion. The implant was released and loading needle removed. The implant was verified to be in the correct position. I was able to palpate the implant. Steri-Strip was placed over the insertion site as well as an grupo wrap. The patient will remove the grupo wrap in 24 hours. The user card will be given to the patient for the Nexplanon so that she remembers to have it removed in 3 years or sooner if she desires to conceive. She will be admitted to the [facility] for overnight observation given the extent of her surgery and receive 24 hours worth of IV Anceph. 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 MTDD
[2017-03-26 17:30] VITALS: BP 133/65
[2017-03-26] MEDS ORDERED: MORPHINE 2 MG/ML 1ML SYRINGE IV PRN (18:00)
[2017-03-26 18:30] VITALS: BP 131/70
[2017-03-26 20:00] VITALS: BP 124/64
[2017-03-26] MEDS: DOCUSATE SODIUM 100 MG CAP PO SCH (20:33)
[2017-03-26] MEDS: KETOROLAC 30 MG/ML VIAL (J1885) IV PRN (20:33)
[2017-03-27] VITALS: BP 121/59
[2017-03-27] MEDS: KETOROLAC 30 MG/ML VIAL (J1885) IV PRN ×2 (02:58→09:30)
[2017-03-27 04:00] VITALS: BP 115/57
[2017-03-27] MEDS: LR 1,000 ML IV SCH ×3 (04:31→21:16)
[2017-03-27] MEDS: PERCOCET 5MG/325MG TAB PO PRN ×3 (07:01→23:17)
[2017-03-27 07:13] LABS: BASO % 0.1 % (0.0-1.0); EOS % 0.1 % (0.0-3.0); IMMATURE GRANULOCYTE % 0.3 % (0-0); LYMPH # 1.8 10^3/uL (1.5-6.5); MEAN CORPUSCULAR HEMOGLOBIN 32.2 pg (27.0-33.0); MEAN CORPUSCULAR HGB CONC 33.6 g/dl (32.0-36.5); MEAN CORPUSCULAR VOLUME 95.8 fl (80.0-96.0); MONO # 0.8 10^3/uL (0.0-0.8); MONO % 8.7 % (0.0-5.0); NEUTROPHILS # 6.2 10^3/uL (1.8-7.7); NEUTROPHILS % 70.8 % (36.0-66.0); PLATELET COUNT, AUTOMATED 257 10^3/uL (150-450); RED CELL DISTRIBUTION WIDTH 13.1 % (11.5-14.5); WHITE BLOOD COUNT 8.8 10^3/uL (4.0-10.0)
[2017-03-27 08:00] VITALS: BP 117/60
[2017-03-27] MEDS: DOCUSATE SODIUM 100 MG CAP PO SCH ×2 (09:30→20:19)
--- NOTE | 2017-03-27 11:47 | IPNPDOC ---
Text Note Date of Service The patient was seen on 03/27/17. NOTE Post-operative day 1 Gracy is a 26yo on post-op day 1 s/p operative hysteroscopy, operative laparoscopy, laparotomy with fluoroscopy done to treat retained Paragard IUD fragment as well as Nexplanon placement for continued contraception. She did well overnight. Tolerated crackers without emesis, not much appetite. Has been ambulating and voiding spontaneously without problem. No lightheadedness/ dizziness/n/v/f/c/SOB/CP. Scant vaginal bleeding. Pain now well controlled with percocet/toradol/heat pack. Vitals wnl, afebrile General: WDWN, NAD, lying comfortably in bed Cardiac: S1S2 present, no murmurs Lungs: CTAB, no wheeze/crackles/rhales Abdomen: soft, non-distended, appropriately tender to palpation without rebound/ guarding, dressing removed from laparotomy incision site and incision is well reapproximated and without erythema/drainage/induration. Steri strips overlying laparotomy incision and trocar sites are dry and intact. Trocar sites also without erythema/drainage and well reapproximated Extremities: no tenderness with palpation of calves Labs: pre-op H/H 13/37.9 post-op H/H 9.2/27.4 Assessment: Gracy is a 26yo doing well post-op day 1 s/p operative hysteroscopy, operative laparoscopy, laparotomy with fluoroscopy done to treat retained Paragard IUD fragment as well as Nexplanon placement for continued contraception. She is receiving IV anceph for 24hr for uterine perforation. Tolerating some PO intake without emesis. Benign exam, vitals wnl. Appropriate drop in H/H, hemodynamically stable with no evidence of infection. Plan: -If patient tolerating better PO intake for lunch and pain well controlled with percocet/motrin (just discontinued toradol), she can be discharged to home -She has home meds given from our clinic: percocet, motrin, colace, ferrous sulfate and has been instructed on how to take them -Return precautions discussed for increasing abdominal/pelvic pain, fevers/ chills, signs of wound infection such as drainage or redness, chest pain/ shortness of breath or any other concerns -She has post-operative appt scheduled with tn [address] Simran Tineo MD [place] DOV VS,Ben, I+O VS, Ben, I+O Laboratory Tests 03/27/17 06:57 Red Blood Count 2.86 L, Mean Corpuscular Volume 95.8, Mean Corpuscular Hemoglobin 32.2, Mean Corpuscular Hemoglobin Concent 33.6, Red Cell Distribution Width 13.1, Neutrophils (%) (Auto) 70.8 H, Lymphocytes (%) (Auto) 20.0 L, Monocytes (%) (Auto) 8.7 H, Eosinophils (%) (Auto) 0.1, Basophils (%) ( Auto) 0.1, Neutrophils # (Auto) 6.2, Lymphocytes # (Auto) 1.8, Monocytes # (Auto ) 0.8, Eosinophils # (Auto) 0.0, Basophils # (Auto) 0.0 Vital Signs Date Time Temp Pulse Resp B/P (MAP) Pulse Ox O2 Delivery O2 Flow Rate FiO2 03/27/17 08:00 98.7 83 16 117/60 (79) 97 Room Air 03/26/17 14:09 2 I&O- Last 24 Hours up to 6 AM 03/28/17 06:00 Intake Total 360 ml Output Total 700 ml Balance -340 ml Simran Tineo MD Mar 27, 2017 11:47
--- NOTE | 2017-03-27 11:55 | DS.PDOC ---
Discharge Summary General Date of Admission Mar 26, 2017 at 13:10 Date of Discharge Mar 27, 2017 Attending Physician: Simran Tineo MD Discharge Summary PROCEDURES PERFORMED DURING STAY: Operative hysteroscopy Operative laparoscopy Exploratory laparotomy with fluoroscopy Nexplanon placement Routine screening pap smear ADMITTING DIAGNOSES: 1. Retained Paragard intrauterine device fragment 2. Desire for continued contraception DISCHARGE DIAGNOSES: 1. Retained Paragard intrauterine device fragment status post removal 2. Desire for continued contraception- Nexplanon placed COMPLICATIONS/CHIEF COMPLAINT: Retained Intrauterine Device Fragment. HISTORY OF PRESENT ILLNESS/HOSPITAL COURSE: Gracy is a 26yo status post operative hysteroscopy, operative laparoscopy, laparotomy with fluoroscopy done on 03/26/17 to treat retained Paragard IUD fragment as well as Nexplanon placement for continued contraception. She received IV anceph for 24 hours for uterine perforation during surgery. She had a benign post-operative course and at time of discharge she had a benign exam with normal vitals. Appropriate drop in H/H, hemodynamically stable with no evidence of infection. We discussed after her surgery that she will need a section for all future deliveries secondary to extent of surgery that was required to remove her IUD fragment. DISCHARGE MEDICATIONS: Please see below. ALLERGIES: Please see below. PHYSICAL EXAMINATION ON DISCHARGE: Vitals wnl, afebrile General: WDWN, NAD, lying comfortably in bed Cardiac: S1S2 present, no murmurs Lungs: CTAB, no wheeze/crackles/rhales Abdomen: soft, non-distended, appropriately tender to palpation without rebound/ guarding, dressing removed from laparotomy incision site and incision is well reapproximated and without erythema/drainage/induration. Steri strips overlying laparotomy incision and trocar sites are dry and intact. Trocar sites also without erythema/drainage and well reapproximated Extremities: no tenderness with palpation of calves LABORATORY DATA: pre-op H/H 13/37.9 post-op H/H 9.2/27.4 PROGNOSIS: good ACTIVITY: As tolerated, no heavy lifting for 2 weeks (nothing greater than a full milk jug), walking is ok DIET: regular DISPOSITION: home DISCHARGE PLAN AND INSTRUCTIONS: -Keep incision clean and dry, ok to shower but pat dry well after -Home meds given from our clinic: percocet, motrin, colace, ferrous sulfate and has been instructed on how to take them -Return precautions discussed for increasing abdominal/pelvic pain, fevers/ chills, signs of wound infection such as drainage or redness, chest pain/ shortness of breath or any other concerns -Post-operative appt scheduled with Dr. Tineo 09 April DISCHARGE CONDITION: Stable TIME SPENT ON DISCHARGE: Greater than [address] Simran Tineo [place] [facility] [place] Vital Signs/I&Os Vital Signs Date Time Temp Pulse Resp B/P (MAP) Pulse Ox O2 Delivery O2 Flow Rate FiO2 03/27/17 08:00 98.7 83 16 117/60 (79) 97 Room Air 03/26/17 14:09 2 I&O- Last 24 Hours up to 6 AM 03/28/17 06:00 Intake Total 360 ml Output Total 700 ml Balance -340 ml Laboratory Data Labs 24H Laboratory Tests 2 03/27/17 06:57: Immature Granulocyte % (Auto) 0.3H, White Blood Count 8.8, Red Blood Count 2.86L , Hemoglobin 9.2#L, Hematocrit 27.4L, Mean Corpuscular Volume 95.8, Mean Corpuscular Hemoglobin 32.2, Mean Corpuscular Hemoglobin Concent 33.6, Red Cell Distribution Width 13.1, Platelet Count 257, Neutrophils (%) (Auto) 70.8H, Lymphocytes (%) (Auto) 20.0L, Monocytes (%) (Auto) 8.7H, Eosinophils (%) (Auto) 0.1, Basophils (%) (Auto) 0.1, Neutrophils # (Auto) 6.2, Lymphocytes # (Auto) 1.8, Monocytes # (Auto) 0.8, Eosinophils # (Auto) 0.0, Basophils # (Auto) 0.0, Immature Granulocyte # (Auto) 0.0, Nucleated Red Blood Cells % (auto) 0.0 CBC/BMP Laboratory Tests 03/27/17 06:57 Red Blood Count 2.86 L, Mean Corpuscular Volume 95.8, Mean Corpuscular Hemoglobin 32.2, Mean Corpuscular Hemoglobin Concent 33.6, Red Cell Distribution Width 13.1, Neutrophils (%) (Auto) 70.8 H, Lymphocytes (%) (Auto) 20.0 L, Monocytes (%) (Auto) 8.7 H, Eosinophils (%) (Auto) 0.1, Basophils (%) ( Auto) 0.1, Neutrophils # (Auto) 6.2, Lymphocytes # (Auto) 1.8, Monocytes # (Auto ) 0.8, Eosinophils # (Auto) 0.0, Basophils # (Auto) 0.0 Discharge Medications Scheduled PRN (Midol Complete 500-60-15 mg) 1 Tab Tab, 1 TAB PO Q4HP PRN for CRAMPS, ( Reported) Ibuprofen (Ibuprofen) 600 Mg Tab, 600 MG PO Q8HP PRN for CRAMPS, (Reported) Allergies Coded Allergies: No Known Allergies (Unverified , 03/19/17) Simran Tineo MD Mar 27, 2017 11:55
[2017-03-27 12:00] VITALS: BP 106/53
[2017-03-27] MEDS: IBUPROFEN 800 MG TAB PO PRN ×2 (15:57→23:16)
[2017-03-27 16:00] VITALS: BP 126/59
[2017-03-27] MEDS ORDERED: IBUP80TA PO (17:07)
[2017-03-27] MEDS ORDERED: OXYC1TAB23 PO (17:07)
[2017-03-27] MEDS ORDERED: COLA100C5 PO (17:12)
[2017-03-27] MEDS ORDERED: FERR325T3 PO (17:12)
[2017-03-27 20:00] VITALS: BP 125/63
[2017-03-28] VITALS: BP 112/61
[2017-03-28] MEDS: PERCOCET 5MG/325MG TAB PO PRN ×2 (02:45→06:52)
[2017-03-28 04:00] VITALS: BP 117/55
[2017-03-28] MEDS: LR 1,000 ML IV SCH (05:16)
[2017-03-28] MEDS: IBUPROFEN 800 MG TAB PO PRN (06:52)
[2017-03-28 08:00] VITALS: BP 134/61
[2017-03-28] MEDS ORDERED: INFLUENZA QUADRIVALENT PF VACCINE 0.5ML SYRINGE (90686) IM ONE (09:00)
[2017-03-28] MEDS: DOCUSATE SODIUM 100 MG CAP PO SCH (09:11)
--- NOTE | 2017-03-28 09:11 | IPNPDOC ---
Text Note Date of Service The patient was seen on 03/28/17. NOTE Post-operative day 2 Gracy is a 26yo on post-op day 2 s/p operative hysteroscopy, operative laparoscopy, laparotomy with fluoroscopy done to treat retained Paragard IUD fragment as well as Nexplanon placement for continued contraception. She stayed one day longer because she did not feel ready to go home yesterday evening secondary to her pain mostly when she was up moving around, she states pain was well controlled overnight on motrin/percocet. Still not much appetite, though tolerating clear liquids and currently trying a fruit cup. Has been ambulating and voiding spontaneously without problem. No lightheadedness/dizziness/n/v/f/c/ SOB/CP. Scant vaginal bleeding. Vitals wnl, afebrile General: WDWN, NAD, lying comfortably in bed Cardiac: S1S2 present, no murmurs Lungs: CTAB, no wheeze/crackles/rhales Abdomen: soft, non-distended, +BS, appropriately tender to palpation without rebound/guarding, laparotomy incision is well reapproximated and without erythema/drainage/induration. Steri strips overlying laparotomy incision and trocar sites are dry and intact. Trocar sites also without erythema/drainage and well reapproximated Extremities: no tenderness with palpation of calves. Nexplanon palpable on left upper arm, small bruise, no signs of infection Labs: pre-op H/H 13/37.9 post-op H/H 9.2/27.4 Assessment: Gracy is a 26yo doing well post-op day 2 s/p operative hysteroscopy, operative laparoscopy, laparotomy with fluoroscopy done to treat retained Paragard IUD fragment as well as Nexplanon placement for continued contraception. She received IV anceph for 24hr post-op for uterine perforation. Tolerating PO intake without emesis. Benign exam, vitals wnl. Appropriate drop in H/H, hemodynamically stable with no evidence of infection. Plan: -Discharge to home today -She has home meds given from our clinic: percocet, motrin, colace, ferrous sulfate and has been instructed on how to take them -Return precautions discussed for increasing abdominal/pelvic pain, fevers/ chills, signs of wound infection such as drainage or redness, chest pain/ shortness of breath or any other concerns -She has post-operative appt scheduled with ar [address] Simran Tineo MD [place] DOV VS,Ben, I+O VSBen, I+O Vital Signs Date Time Temp Pulse Resp B/P (MAP) Pulse Ox O2 Delivery O2 Flow Rate FiO2 03/28/17 08:20 17 03/28/17 04:00 97.8 89 117/55 (75) 94 Room Air 03/26/17 14:09 2 Simran Tineo MD Mar 28, 2017 09:11
== END 2017-03-28 11:55 | disposition home or self-care (01) | DRG 743 ==
LOC: M SDC 05:52 → M PED 13:10
PROVIDERS: ADMIT Obstetrics & Gynecology; ATTEND Obstetrics & Gynecology
PROC: 0XH Anatomical Regions, Upper Extremities, Insertion (ICD-10-PCS; 2017-03-26)
PROC: 0UPD0HZ Removal of Contraceptive Device from Uterus and Cervix, Open Approach (ICD-10-PCS; principal; 2017-03-26 07:30)
DX: T83.39XA Other mechanical complication of intrauterine contraceptive device, initial encounter (principal); Z18.2 Retained plastic fragments; Z53.31 Laparoscopic surgical procedure converted to open procedure; Y84.8 Other medical procedures as the cause of abnormal reaction of the patient, or of later complication, without mention of misadventure at the time of the procedure

== ENCOUNTER 2017-10-02 12:33 | Emergency (ER) | payer OTHER ==
[2017-10-02] MEDS: IBUPROFEN 600 MG TAB PO (17:00)
[2017-10-02] MEDS: BENZONATATE 100 MG CAP PO (17:00)
== END 2017-10-02 17:12 | disposition home or self-care (01) ==
LOC: M ED 12:33
DX: H65.93 Unspecified nonsuppurative otitis media, bilateral (principal); J06.9 Acute upper respiratory infection, unspecified
CPT/HCPCS: 87880